=== PATIENT | female | born 1950 | race Two or more races ===

== ENCOUNTER 2023-01-03 15:16 | Observation (INO) | payer OTHER ==
[2023-01-03 15:29] VITALS: BMI 24.4
[2023-01-03] MEDS ORDERED: ACETAMINOPHEN 500 MG TABLET (FP) PO ONE (16:11)
[2023-01-03] MEDS ORDERED: SODIUM CHLORIDE 0.9% 500 ML INFUS.BAG IV ONE (16:12)
[2023-01-03] MEDS ORDERED: ACETAMINOPHEN 325 MG TABLET (FP) ONE (16:45)
[2023-01-03 17:37] LABS: BASO % 0.6 % (0-2.0); HEMATOCRIT 35.4 % (32.4-45.2); LYMPH % 14.5 % (8-40); MCH 31.2 pg (25.7-33.7); MCHC 34.1 g/dl (32.0-36.0); MEAN CELL VOLUME 91.5 fl (80-96); MEAN PLT VOLUME 9.1 fl (7.5-11.1); MONO % 4.7 % (3.8-10.2); NEUT % 80.2 % (42.8-82.8); PLATELET COUNT 253 10^3/uL (134-434); RBC 3.86 M/mm3 (3.60-5.2); WHITE BLOOD COUNT 9.6 K/mm3 (4.0-10.0)
[2023-01-03 17:55] LABS: POTASSIUM 4.2 mmol/L (3.5-5.1)
[2023-01-03 17:57] LABS: ALBUMIN 3.6 g/dl (3.4-5.0); BLOOD UREA NITROGEN 22.4 mg/dL (7-18); CALCIUM 8.6 mg/dL (8.5-10.1); MAGNESIUM 1.6 mg/dL (1.8-2.4)
[2023-01-03 18:01] LABS: CREATININE 0.6 mg/dL (0.55-1.3)
[2023-01-03 18:02] LABS: BILIRUBIN,TOTAL 0.7 mg/dL (0.2-1)
[2023-01-03] MEDS ORDERED: MAGNESIUM SULF 50% (8.12 MEQ/2 ML-1 GM VIAL) IVPB ONE (18:02)
[2023-01-03] MEDS ORDERED: MAGNESIUM 1GM/D5W - 1 GM/100 ML IVPB IVPB ONE (18:18)
[2023-01-03 20:25] LABS: EPI CELLS 14 /uL (0-25.1); HYALINE CASTS 0 /uL (0-3.1); PH,URINE 7.5 (5.0-8.0); URINE APPEARANCE TURBID; URINE BACTERIA 35 /uL (0-1359); URINE BILIRUBIN NEGATIVE (NEGATIVE); URINE COLOR YELLOW; URINE GLUCOSE (UA) NEGATIVE (NEGATIVE); URINE KETONE 2+ (NEGATIVE); URINE LEUK ESTERASE NEGATIVE (NEGATIVE); URINE NITRITE NEGATIVE (NEGATIVE); URINE PROTEIN NEGATIVE (NEGATIVE); URINE RBC 407 /uL (0-23.9); URINE UROBILINOGEN 0.2 mg/dL (0.2-1.0); URINE WBC 17 /uL (0-25.8)
[2023-01-04] MEDS ORDERED: ENOXAPARIN NA (PORCINE) 40 MG/0.4 ML DISP.SYRIN SQ ONE (09:24)
[2023-01-04] MEDS ORDERED: ENOXAPARIN NA (PORCINE) 40 MG/0.4 ML DISP.SYRIN SQ SCH (10:00)
[2023-01-04 10:57] LABS: HEMATOCRIT 31.8 % (32.4-45.2); HEMOGLOBIN 11.4 GM/dL (10.7-15.3); MCH 32.6 pg (25.7-33.7); MCHC 35.7 g/dl (32.0-36.0); MEAN CELL VOLUME 91.2 fl (80-96); MEAN PLT VOLUME 9.4 fl (7.5-11.1); PLATELET COUNT 220 10^3/uL (134-434); RBC 3.49 M/mm3 (3.60-5.2); RDW 14.2 % (11.6-15.6); WHITE BLOOD COUNT 9.8 K/mm3 (4.0-10.0)
[2023-01-04 11:20] LABS: POTASSIUM 3.6 mmol/L (3.5-5.1)
[2023-01-04 11:27] LABS: ALBUMIN 3.2 g/dl (3.4-5.0); BLOOD UREA NITROGEN 20.9 mg/dL (7-18); CALCIUM 8.2 mg/dL (8.5-10.1); MAGNESIUM 1.9 mg/dL (1.8-2.4)
[2023-01-04 11:29] LABS: PHOSPHOROUS 2.8 mg/dL (2.5-4.9)
[2023-01-04 11:30] LABS: CREATININE 0.5 mg/dL (0.55-1.3)
[2023-01-04 11:31] LABS: BILIRUBIN,TOTAL 0.8 mg/dL (0.2-1); TOT PROT 6.2 g/dl (6.4-8.2)
[2023-01-04 12:08] VITALS: BP 104/84; PULSE 71; RESP 19; TEMP 98
== END 2023-01-04 17:25 | disposition home or self-care (01) ==
LOC: JER 15:16 → INTOOBSV 16:47 → JERBED 16:47
PROVIDERS: ADMIT Internal Medicine; ATTEND Internal Medicine
PROC: 3E033GC Introduction of Other Therapeutic Substance into Peripheral Vein, Percutaneous Approach (ICD-10-PCS; principal; 2023-01-03)
PROC: 3E0337Z Introduction of Electrolytic and Water Balance Substance into Peripheral Vein, Percutaneous Approach (ICD-10-PCS; 2023-01-03)
DX: R55 Syncope and collapse (principal); E83.42 Hypomagnesemia; R42 Dizziness and giddiness; R53.1 Weakness; Z29.89 Encounter for other specified prophylactic measures
CPT/HCPCS: 0241U-QW; 36415; 70450-TC; 70551-TC; 71045-TC-FY; 72125-TC; 72170-TC-FY; 74176-TC; 80053; 80061; 81003; 82550; 82962; 83735; 84100; 84443; 84484; 85025; 85027; 93005; 93010; 96374; 99285-25; G0378

== ENCOUNTER 2023-11-29 10:52 | Day surgery (SDC) | payer OTHER ==
[2023-11-25 12:24] VITALS: BMI 22.4
[2023-11-29 13:06] VITALS: RESP 18
[2023-11-29 13:07] VITALS: TEMP 97
[2023-11-29 13:08] VITALS: BP 115/76; PULSE 73
== END 2023-11-29 13:44 | disposition home or self-care (01) ==
LOC: FASU-ENDO 10:52
PROVIDERS: ATTEND Internal Medicine Gastroenterology
PROC: 0DBL8ZX Excision of Transverse Colon, Via Natural or Artificial Opening Endoscopic, Diagnostic (ICD-10-PCS; principal; 2023-11-29 12:11)
DX: Z12.11 Encounter for screening for malignant neoplasm of colon (principal); D12.3 Benign neoplasm of transverse colon
CPT/HCPCS: 88305-TC